=== PATIENT | female | born 1985 | race Caucasian/White ===

== ENCOUNTER 2016-09-21 08:27 | Observation (INO) | payer MEDICAID, OTHER ==
[2016-09-21] MEDS ORDERED: Sodium Chloride 0.9% 1,000 ML IV STA (09:31)
[2016-09-21 10:16] LABS: BASO # 0.1 K/uL (0.0-0.2); BASO % 0.5 % (0.0-2.0); EOS # 0.1 K/uL (0.0-0.7); EOS % 0.7 % (0.0-4.0); HEMOGLOBIN 13.6 g/dL (12.0-16.0); LYMPH % 8.4 % (20.0-40.0); MEAN CELL VOLUME 83.3 fl (81.0-99.0); MEAN CORPUSCULAR HEMOGLOBIN 28.1 pg (27.0-31.0); MEAN CORPUSCULAR HGB CONC 33.7 g/dL (33.0-37.0); MONO # 0.9 K/uL (0.0-0.8); MONO % 7.5 % (0.0-10.0); NEUT % 82.9 % (50.0-75.0); NRBC % 0.1 % (0.0-0.0); PLATELET COUNT 294 K/uL (130-400); RBC 4.83 Mil/uL (3.80-5.20); RED CELL DISTRIBUTION WIDTH 15.5 % (11.5-14.5)
[2016-09-21 10:26] LABS: BLOOD UREA NITROGEN 7 mg/dl (7-17); CALCIUM 9.7 mg/dL (8.4-10.2); GFR AFRICAN-AMERICAN > 60; GFR NON-AFRICAN AMERICAN > 60
[2016-09-21 11:27] LABS: EOSINOPHIL 1 % (0-7); LYMPHOCYTE 10 % (20-50); MONOCYTE 8 % (0-10); NEUTROPHIL 81 % (42-75); TOTAL CELLS COUNTED 100
[2016-09-21 11:28] LABS: PLATELET ESTIMATE NORMAL (NORMAL)
--- NOTE | 2016-09-21 11:33 | CT ---
PROCEDURE: CT HEAD WITHOUT CONTRAST. HISTORY: headache, passed out COMPARISON: 03/24/2014 TECHNIQUE: Axial computed tomography images were obtained through the head/brain without intravenous contrast. Radiation dose: Total exam DLP = 899.09 mGy-cm. This CT exam was performed using one or more of the following dose reduction techniques: Automated exposure control, adjustment of the mA and/or kV according to patient size, and/or use of iterative reconstruction technique. FINDINGS: HEMORRHAGE: No intracranial hemorrhage. BRAIN: No mass effect or edema. No atrophy or chronic microvascular ischemic changes. VENTRICLES: Unremarkable. No hydrocephalus. CALVARIUM: Unremarkable. PARANASAL SINUSES: Unremarkable as visualized. No significant inflammatory changes. MASTOID AIR CELLS: Unremarkable as visualized. No inflammatory changes. OTHER FINDINGS: None. IMPRESSION: No acute intracranial abnormalities. No significant findings to account for the clinical presentation. No significant interval change compared to the prior examination(s).
--- NOTE | 2016-09-21 12:15 | ED PDOC ---
Syncope/Near Syncope/Dizziness Time Seen by Provider: 09/21/16 09:11 Chief Complaint (Nursing): Syncope History Per: Patient (states that she passed out this morning after she an episode of severe left sided neck pain that radiated towards the left side of skull. Her notice her falling and was able to keep her fallng to ), Family History/Exam Limitations: no limitations Past Medical History Reviewed: Historical Data, Nursing Documentation, Vital Signs Vital Signs: Last Vital Signs Temp 98 F 09/21/16 09:01 Pulse 104 H 09/21/16 09:01 Resp 18 09/21/16 09:01 BP 98/63 L 09/21/16 09:01 Pulse Ox 100 09/21/16 09:01 - Medical History PMH: Migraine - Surgical History Surgical History: No Surg Hx - Family History Family History: States: Unknown Family Hx - Living Arrangements Living Arrangements: With Family - Social History Current smoker - smoking cessation education provided: No Ex-Smoker (has not smoked in the last 12 months): No - Home Medications Home Medications: Ambulatory Orders Medication Instructions Recorded Metoclopramide [Reglan] 1 tab PO TID PRN #30 tab 02/19/15 Ibuprofen [Motrin] 600 mg PO Q6H PRN #30 tab 06/16/15 oxyCODONE/Acetaminophen [Percocet 1 ea PO Q4H PRN #20 tab 06/16/15 5/325 mg Tab] - Allergies Allergies/Adverse Reactions: Allergies Allergy/AdvReac Type Severity Reaction Status Date / Time peanut Allergy SWELLING Verified 04/06/15 09:35 Review of Systems ROS Statement: Except As Marked, All Systems Reviewed And Found Negative Physical Exam - Reviewed Nursing Documentation Reviewed: Yes Vital Signs Reviewed: Yes - Physical Exam Appears: Positive for: Well, Non-toxic, No Acute Distress Head Exam: Positive for: ATRAUMATIC, NORMAL INSPECTION, NORMOCEPHALIC Skin: Positive for: Normal Color, Warm, DRY Eye Exam: Positive for: Normal appearance, EOMI, PERRL ENT: Positive for: Normal ENT Inspection Neck: Positive for: Normal, Painless ROM Cardiovascular/Chest: Positive for: Regular Rate, Rhythm Respiratory: Positive for: CNT, Normal Breath Sounds Gastrointestinal/Abdominal: Positive for: Normal Exam, Bowel Sounds, Soft Back: Positive for: Normal Inspection Extremity: Positive for: Normal ROM Neurologic/Psych: Positive for: Alert, Oriented - Laboratory Results Result Diagrams: 09/21/16 09:45 09/21/16 09:45 - ECG O2 Sat by Pulse Oximetry: 100 Disposition - Clinical Impression Clinical Impression: Syncope, Intractable headache - Patient ED Disposition Is Patient to be Admitted: Yes Doctor Will See Patient In The: Hospital - Disposition Disposition: Transfer of Care Disposition Time: 12:00 Condition: GUARDED Forms: [facility] (Greenlandic) - Pt Status Changed To: Hospital Disposition Of: Observation - POA Present On Arrival: None
[2016-09-21] MEDS ORDERED: Oxycodone/Acetaminophen 5/325 mg Tab PO PRN (13:16)
--- NOTE | 2016-09-21 14:37 | CON ---
DATE: 09/21/2016 NEUROLOGY CONSULTATION CHIEF COMPLAINT: Syncope and headaches. HISTORY OF PRESENT ILLNESS: This is a 31-year-old woman who has been having history of migraines and worsening headaches for the past month where she is getting it daily. She is not on any control. She gets diffuse pressure headaches, associated with photophobia, phonophobia, scintillating scotomas without any paresthesia in the extremities. She also gets right-sided and left-sided neck tightness radiating up to the back of the head, it was causing headaches at the time. She had syncopal event at home and fell in her 's arms, was fainted, and had a low systolic and diastolic blood pressure in the ER of 98/63 and was also dehydrated. She was given one bag of fluids. At this time her neuro exams are nonfocal. CT head show no acute cranial abnormalities. She will be getting MRI of the brain at this time. PAST MEDICAL HISTORY: History of migraine headaches. SOCIAL HISTORY: No illicit drug use, smoking or EtOH abuse. FAMILY HISTORY: Noncontributory. ALLERGIES: ALLERGIC TO PEANUTS. REVIEW OF SYSTEMS: A 14-point review of system is negative except as in the HPI. MEDICATIONS: Reviewed by the nurse per reconciliation sheet. PHYSICAL EXAMINATION VITAL SIGNS: Temperature of 98, pulse rate of 69, blood pressure 98/63, respiratory rate of 18, oxygen saturation 100% via room air. GENERAL: The patient is sitting up in bed, in no acute distress. HEENT: Head is atraumatic, normocephalic. PERRLA. Extraocular muscles intact. NECK: Supple. No JVD. No adenopathy noted. LUNGS: Clear to auscultation. No adventitious sounds. HEART: S1 and S2 normal, regular rate and rhythm. No murmur, rubs, or gallops. ABDOMEN: Soft, nontender and nondistended. Bowel sounds present. EXTREMITIES: No clubbing, no cyanosis. Peripheral pulses 2+ felt bilaterally. NEUROLOGICAL: The patient is alert and oriented to person, place, month and year. Speech is fluent without any errors. Cranial nerves II through XII intact. Motor exam: Moves all extremities equally. Toes are downgoing bilaterally. Sensory exam: Light touch pinprick, proprioception, and vibration is intact. DTRs are 2+ throughout. Coordination, [id number] intact. Gait is deferred for now. LABORATORY DATA: Sodium is 142, potassium 4, chloride 103, carbon dioxide 28, BUN of 7, creatinine 0.6. Random glucose of 77. ASSESSMENT AND PLAN: This is a 31-year-old woman with past medical history of migraine headaches. She had a syncopal event and has worsening migraine headaches for the past month. Her syncope is likely a vasovagal component secondary to dehydration and has aggregated her migraine headaches. RECOMMENDATIONS: 1. headaches are chronic in nature having mostly everyday in the past month, we will recommend her to be on Topamax 25 mg p.o. at bedtime and gabapentin 100 mg p.o. at bedtime for headache prevention. 2. Fioricet 1 tablet q. onset of headaches p.r.n. 3. MRI of the brain to assess any structural abnormalities though the CAT scan of the head is negative and neurologic exam is nonfocal. She is clinically stable to follow up as an outpatient. Roverto Izaguirre MD
--- NOTE | 2016-09-21 15:29 | MRI ---
PROCEDURE: MRI BRAIN WITHOUT CONTRAST HISTORY: syncope, migraine COMPARISON: None. TECHNIQUE: Multiplanar, multisequence MR images of the brain were obtained without intravenous contrast enhancement. FINDINGS: HEMORRHAGE: None DWI: No evidence of an acute or early subacute infarction. BRAIN PARENCHYMA: No mass effect or edema. No atrophy or chronic microvascular ischemic changes. VENTRICLES: Unremarkable. No hydrocephalus. CRANIUM: Unremarkable. ORBITS: Grossly unremarkable. PARANASAL SINUSES/MASTOIDS: Clear VASCULAR SYSTEM: Skull base flow voids intact. OTHER FINDINGS: None. IMPRESSION: Unremarkable non contrast enhanced MRI of the brain.
[2016-09-22 08:07] VITALS: RESP 20; TEMP 98.5; O2SAT 98
--- NOTE | 2016-09-22 08:23 | CP.PCM.HP ---
History of Present Illness - History of Present Illness History of Present Illness: pt admitted for intractable migraine on/off x 4 yrs. minimal relief from nsaids and narcotic pain meds. had neuro eval and mri. mri normal and neuro states that this is migraine and topamax/neurontin was started lastnight w/ effect. c/o mild st this am. no f/,c n/v/d. no associated s/s. Present on Admission - Present on Admission Any Indicators Present on Admission: No Review of Systems - EENT Nose/Mouth/Throat: As Per HPI, Sore Throat - Neurological Neurological: As Per HPI, Headaches Past Patient History - Infectious Disease Hx of Infectious Diseases: None - Past Medical History & Family History Past Medical History?: Yes - Past Social History Smoking Status: Never Smoked - CARDIAC Hx Cardiac Disorders: No - PULMONARY Hx Respiratory Disorders: No - NEUROLOGICAL Hx Neurological Disorder: Yes Hx Migraine: Yes - HEENT Hx HEENT Problems: No - RENAL Hx Chronic Kidney Disease: No - ENDOCRINE/METABOLIC Other/Comment: gestational diabetes - HEMATOLOGICAL/ONCOLOGICAL Hx Blood Disorders: No - INTEGUMENTARY Hx Dermatological Problems: No - MUSCULOSKELETAL/RHEUMATOLOGICAL Hx Musculoskeletal Disorders: No Hx Falls: No - GASTROINTESTINAL Hx Gastrointestinal Disorders: No - GENITOURINARY/GYNECOLOGICAL Hx Genitourinary Disorders: No Hx Urinary Tract Infection: Yes - PSYCHIATRIC Hx Psychophysiologic Disorder: No Hx Substance Use: No - SURGICAL HISTORY Hx Section: Yes (X2) - ANESTHESIA Hx Anesthesia: Yes Hx Anesthesia Reactions: No Hx Malignant Hyperthermia: No Has any member of the family had a problem w/ anesthesia?: No Meds Home Medications: Home Medication List Medication Instructions Recorded Confirmed Type Gabapentin [Neurontin] 100 mg PO HS #30 cap 09/22/16 Rx Ibuprofen [Motrin Tab] 600 mg PO Q6H PRN tab 09/22/16 Rx Metoclopramide [Reglan] 10 mg PO TID PRN tab 09/22/16 Rx Topiramate [Topamax] 25 mg PO HS #30 tab 09/22/16 Rx Allergies/Adverse Reactions: Allergies Allergy/AdvReac Type Severity Reaction Status Date / Time peanut Allergy SWELLING Verified 04/06/15 09:35 Physical Exam - Constitutional Appears: Well, Non-toxic, No Acute Distress - Head Exam Head Exam: ATRAUMATIC, NORMAL INSPECTION, NORMOCEPHALIC - Eye Exam Eye Exam: EOMI, Normal appearance, PERRL Pupil Exam: NORMAL ACCOMODATION, PERRL - ENT Exam ENT Exam: Mucous Membranes Moist, Normal Exam - Neck Exam Neck exam: Positive for: Normal Inspection - Respiratory Exam Respiratory Exam: Clear to Auscultation Bilateral, NORMAL BREATHING PATTERN - Cardiovascular Exam Cardiovascular Exam: REGULAR RHYTHM, RRR, +S1, +S2 - GI/Abdominal Exam GI & Abdominal Exam: Normal Bowel Sounds, Soft. absent: Tenderness - Extremities Exam Extremities exam: Positive for: full ROM, normal capillary refill, normal inspection, pedal pulses present - Back Exam Back exam: FULL ROM, NORMAL INSPECTION - Neurological Exam Neurological exam: Alert, CN II-XII Intact, Normal Gait, Oriented x3, Reflexes Normal - Psychiatric Exam Psychiatric exam: Normal Affect, Normal Mood - Skin Skin Exam: Dry, Intact, Normal Color, Warm Results - Vital Signs Recent Vital Signs: Last Vital Signs Temp 98.5 F 09/22/16 08:00 Pulse 89 09/22/16 08:00 Resp 20 09/22/16 08:00 BP 95/61 L 09/22/16 08:00 Pulse Ox 98 09/22/16 08:00 - Labs Result Diagrams: 09/21/16 09:45 09/21/16 09:45 Assessment & Plan (1) Migraine Assessment and Plan: topamax/neurontin neuro-cleared pt for dc mri-wnl Status: Acute - Assessment and Plan (Free Text) Assessment: sore throat-otc throat drops, will follow as outpt dvt ppx-sca dna e hose, ambulation Decision To Admit - Pt Status Changed To: Hospital Disposition Of: Observation - . Bed Request Type: Telemetry Admitting Physician: Abilio Nazario
--- NOTE | 2016-09-22 09:41 | CP.PCM.DIS ---
Provider - Provider Date of Admission: 09/21/16 12:17 Attending physician: Abilio Nazario MD Time Spent in preparation of Discharge (in minutes): 15 Hospital Course - Lab Results Lab Results: Most Recent Lab Values WBC 12.0 K/uL (4.8-10.8) H 09/21/16 09:45 RBC 4.83 Mil/uL (3.80-5.20) 09/21/16 09:45 Hgb 13.6 g/dL (12.0-16.0) 09/21/16 09:45 Hct 40.2 % (34.0-47.0) 09/21/16 09:45 MCV 83.3 fl (81.0-99.0) D 09/21/16 09:45 MCH 28.1 pg (27.0-31.0) 09/21/16 09:45 MCHC 33.7 g/dL (33.0-37.0) 09/21/16 09:45 RDW 15.5 % (11.5-14.5) H 09/21/16 09:45 Plt Count 294 K/uL (130-400) 09/21/16 09:45 MPV 9.0 fl (7.2-11.7) 09/21/16 09:45 Neut % (Auto) 82.9 % (50.0-75.0) H 09/21/16 09:45 Lymph % (Auto) 8.4 % (20.0-40.0) L 09/21/16 09:45 [place] % (Auto) 7.5 % (0.0-10.0) 09/21/16 09:45 Eos % (Auto) 0.7 % (0.0-4.0) 09/21/16 09:45 Baso % (Auto) 0.5 % (0.0-2.0) 09/21/16 09:45 Neut # 10.0 K/uL (1.8-7.0) H 09/21/16 09:45 Lymph # 1.0 K/uL (1.0-4.3) 09/21/16 09:45 [place] # 0.9 K/uL (0.0-0.8) H 09/21/16 09:45 Eos # 0.1 K/uL (0.0-0.7) 09/21/16 09:45 Baso # 0.1 K/uL (0.0-0.2) 09/21/16 09:45 Neutrophils % (Manual) 81 % (42-75) H 09/21/16 09:45 Lymphocytes % (Manual) 10 % (20-50) L 09/21/16 09:45 Monocytes % (Manual) 8 % (0-10) 09/21/16 09:45 Eosinophils % (Manual) 1 % (0-7) 09/21/16 09:45 Platelet Estimate Normal (NORMAL) 09/21/16 09:45 ESR 9 mm/hr (0-20) 09/21/16 09:45 Sodium 142 mmol/l (132-148) 09/21/16 09:45 Potassium 4.0 MMOL/L (3.6-5.0) 09/21/16 09:45 Chloride 103 mmol/L (98-107) 09/21/16 09:45 Carbon Dioxide 28 mmol/L (22-30) 09/21/16 09:45 Anion Gap 15 (10-20) 09/21/16 09:45 BUN 7 mg/dl (7-17) 09/21/16 09:45 Creatinine 0.6 mg/dL (0.7-1.2) L 09/21/16 09:45 Est GFR ( Amer) > 60 09/21/16 09:45 Est GFR (Non-Af Amer) > 60 09/21/16 09:45 POC Glucose (mg/dL) 82 mg/dL (65-110) 09/21/16 09:39 Random Glucose 77 mg/dL (65-105) 09/21/16 09:45 Calcium 9.7 mg/dL (8.4-10.2) 09/21/16 09:45 Discharge Exam - Head Exam Head Exam: ATRAUMATIC, NORMAL INSPECTION, NORMOCEPHALIC Discharge Plan - Discharge Medications Prescriptions: Gabapentin [Neurontin] 100 mg PO HS #30 cap Topiramate [Topamax] 25 mg PO HS #30 tab - Follow Up Plan Condition: GUARDED Disposition: HOME/ ROUTINE Additional Instructions: f/u rmg 2 days, rted prn, meds per med rec final dx-complex migraine cleared by neuro mri noted and normal
[2016-09-22 09:43] VITALS: BP 129/74
[2016-09-22 09:49] VITALS: PULSE 89
== END 2016-09-22 10:44 | disposition home or self-care (01) ==
LOC: H.ER 08:27 → H.ERHOLD 12:17 → H.TEL 15:21
PROVIDERS: ADMIT Family Medicine; ATTEND Family Medicine
DX: G43.819 Other migraine, intractable, without status migrainosus (principal); E86.0 Dehydration; J02.9 Acute pharyngitis, unspecified; Z91.010 Allergy to peanuts; Z87.440 Personal history of urinary (tract) infections; Z87.891 Personal history of nicotine dependence

== ENCOUNTER 2017-06-15 09:06 | Emergency (ER) | payer MEDICAID ==
[2017-06-15 09:14] VITALS: BMI 18.8
[2017-06-15 09:15] VITALS: RESP 16; O2SAT 100
[2017-06-15] MEDS ORDERED: Sodium Chloride 0.9% 1,000 ML IV STA (09:22)
--- NOTE | 2017-06-15 09:41 | ED PDOC ---
HPI: Headache Time Seen by Provider: 06/15/17 09:10 Chief Complaint (Nursing): Headache History Per: Patient History/Exam Limitations: no limitations Onset/Duration Of Symptoms: Days (x 2) Current Symptoms Are (Timing): Still Present Additional Complaint(s): 32-year-old female, with history of migraines, presents to ED with left-sided headache x 2 days associated with nausea and blurry vision. Similar symptoms to migraine symptoms in the past. Unable to take imitrex due to finding out she was . (-) fever, (-) neck stiffness, (-) injury, (-) peripheral weakness , (-) paresthesias. PMD: Provider TBD Past Medical History Reviewed: Historical Data, Nursing Documentation, Vital Signs Vital Signs: Last Vital Signs Temp 98.3 F 06/15/17 09:14 Pulse 88 06/15/17 09:14 Resp 16 06/15/17 09:14 BP 107/74 06/15/17 09:14 Pulse Ox 100 06/15/17 09:14 - Medical History PMH: Migraine Denies: Chronic Kidney Disease - Surgical History Surgical History: No Surg Hx - Family History Family History: States: Unknown Family Hx - Home Medications Home Medications: Ambulatory Orders Medication Instructions Recorded Gabapentin [Neurontin] 100 mg PO HS #30 cap 09/22/16 Ibuprofen [Motrin Tab] 600 mg PO Q6H PRN tab 09/22/16 Metoclopramide [Reglan] 10 mg PO TID PRN tab 09/22/16 Topiramate [Topamax] 25 mg PO HS #30 tab 09/22/16 - Allergies Allergies/Adverse Reactions: Allergies Allergy/AdvReac Type Severity Reaction Status Date / Time peanut Allergy SWELLING Verified 04/06/15 09:35 Review of Systems ROS Statement: Except As Marked, All Systems Reviewed And Found Negative Constitutional: Negative for: Fever Eyes: Positive for: Other (Blurry vision) Gastrointestinal: Positive for: Nausea Musculoskeletal: Negative for: Other (neck stiffness) Neurological: Positive for: Headache (left-sided). Negative for: Other ( peripheral weakness, paresthesias) Physical Exam - Reviewed Nursing Documentation Reviewed: Yes Vital Signs Reviewed: Yes - Physical Exam Head Exam: Positive for: NORMAL INSPECTION (no temporal tenderness) Eye Exam: Positive for: Normal appearance, EOMI, PERRL Neck: Positive for: Supple Neurologic/Psych: Positive for: Alert, Oriented (x 3). Negative for: Motor/ Sensory Deficits - Laboratory Results Result Diagrams: 06/15/17 09:37 06/15/17 09:37 - ECG O2 Sat by Pulse Oximetry: 100 (RA) Pulse Ox Interpretation: Normal - Progress Re-evaluation Time: 11:16 Condition: Improved Medical Decision Making Medical Decision Making: Time: 09:22 Plan: - Beta-hCG, Quantitative - CMP - CBC - [place] Chloride 09% 1,000 ml IV 150 mls/hr - Reglan 10 g IVP - SOLU-Medrol Beta hCG, Quantitative Reveals 120.44 mIU/mL Scribe Attestation: Documented by Altaf Dave, acting as a scribe for Himanshu Russell MD Provider Scribe Attestation: All medical record entries made by the Scribe were at my direction and personally dictated by me. I have reviewed the chart and agree that the record accurately reflects my personal performance of the history, physical exam, medical decision making, and the department course for this patient. I have also personally directed, reviewed, and agree with the discharge instructions and disposition. Disposition - Clinical Impression Clinical Impression: Migraine - Patient ED Disposition Is Patient to be Admitted: No Counseled Patient/Family Regarding: Diagnosis, Need For Followup - Disposition Referrals: Darion Camara MD [Medical Doctor] - Disposition: Routine/Home Disposition Time: 11:17 Condition: FAIR Instructions: Migraine Headache (DC) Forms: [employer] (Korean)
[2017-06-15 09:43] LABS: BASO # 0.1 K/uL (0.0-0.2); BASO % 0.9 % (0.0-2.0); EOS # 0.1 K/uL (0.0-0.7); EOS % 1.7 % (0.0-4.0); HEMOGLOBIN 14.7 g/dL (12.0-16.0); LYMPH # 1.8 K/uL (1.0-4.3); LYMPH % 22.8 % (20.0-40.0); MEAN CELL VOLUME 85.5 fl (81.0-99.0); MEAN CORPUSCULAR HEMOGLOBIN 29.2 pg (27.0-31.0); MEAN CORPUSCULAR HGB CONC 34.1 g/dL (33.0-37.0); MONO # 0.8 K/uL (0.0-0.8); MONO % 9.9 % (0.0-10.0); NEUT # 5.2 K/uL (1.8-7.0); NEUT % 64.7 % (50.0-75.0); RBC 5.03 Mil/uL (3.80-5.20); RED CELL DISTRIBUTION WIDTH 14.8 % (11.5-14.5); WHITE BLOOD COUNT 8.1 K/uL (4.8-10.8)
[2017-06-15 09:54] LABS: ALB/GLOB RATIO 1.2 (1.0-2.1); ALBUMIN 4.8 g/dL (3.5-5.0); ALT/SGPT 27 U/L (9-52); AST/SGOT 21 U/L (14-36); BLOOD UREA NITROGEN 8 mg/dl (7-17); CALCIUM 9.6 mg/dL (8.4-10.2); GFR AFRICAN-AMERICAN > 60; GFR NON-AFRICAN AMERICAN > 60
[2017-06-15 11:23] VITALS: BP 110/76; PULSE 78; TEMP 98.1
== END 2017-06-15 11:20 | disposition home or self-care (01) ==
LOC: H.ER 09:06
DX: G43.909 Migraine, unspecified, not intractable, without status migrainosus (principal)
CPT/HCPCS: 80053; 84702; 85025; 96374; 96375; 99285; J2765; J2930; J7040

== ENCOUNTER 2017-06-23 08:47 | Emergency (ER) | payer MEDICAID ==
[2017-06-23 08:47] VITALS: BMI 18.8
[2017-06-23 09:30] VITALS: RESP 18
--- NOTE | 2017-06-23 11:40 | ED PDOC ---
HPI: Female Pain Chief Complaint (Provider): vaginal bleeding History Per: Patient History/Exam Limitations: no limitations Onset/Duration Of Symptoms: Hrs Current Symptoms Are (Timing): Still Present Severity: Moderate Associated Symptoms: denies: Fever, Chills, Nausea, Vomiting, Urinary Symptoms Alleviating Factors: None Additional Complaint(s): 32 yr old presents to ED with complaint of vaginal bleeding. Patient reports a positive at home test on 06/12/17. LMP was 05/14/17. Patient had an ED visit for migraine headache on 06/15/17 and had a positive Beta-Hcg quant of 120.44 mIU/mL. Has not followed up with PMD or obgyn. Denies nausea, vomiting, weakness, dizziness or abd/pelvic pain. Vaginal bleeding is menses like in quantity. PMD: [facility] Obgyn: , hx 1 miscarriage in 2013 SurgHx: 2 c-sections Meds: none Allergies: NKDA <Brissa Thacker - Last Filed: 06/23/17 13:02> <Derian Darnell - Last Filed: 06/24/17 17:38> Time Seen by Provider: 06/23/17 09:46 Chief Complaint (Nursing): Female Genitourinary Supervising Attending Note - Supervising Attending Note The Documented history was done by the: Physician Production Broacher, Attending Physician The documented physical exam was done by the: Physician Production Broacher, Attending Physician The documented procedures were done by the: Physician Production Broacher, Attending Physician - Attestation: I have personally seen and examined this patient.: Yes I have fully participated in the care of the patient.: Yes I have reviewed all pertinent clinical information, including history, physical exam and plan: Yes <Derian Darnell - Last Filed: 06/24/17 17:38> Past Medical History Vital Signs: Last Vital Signs Temp 98.1 F 06/23/17 09:29 Pulse 90 06/23/17 09:29 Resp 18 06/23/17 09:29 BP 116/83 06/23/17 09:29 Pulse Ox 100 06/23/17 09:29 - Medical History PMH: Migraine Denies: Chronic Kidney Disease - Surgical History Surgical History: (x 2) - Family History Family History: States: Unknown Family Hx - Living Arrangements Living Arrangements: With Family - Social History Current smoker - smoking cessation education provided: No Ex-Smoker (has not smoked in the last 12 months): No Alcohol: None Drugs: Denies <Brissa Thacker - Last Filed: 06/23/17 13:02> Reviewed: Historical Data, Nursing Documentation, Vital Signs Vital Signs: Last Vital Signs Temp 98 F 06/23/17 14:15 Pulse 70 06/23/17 14:15 Resp 18 06/23/17 14:15 BP 103/64 06/23/17 14:15 Pulse Ox 99 06/23/17 14:15 <Derian Darnell - Last Filed: 06/24/17 17:38> - Home Medications Home Medications: Ambulatory Orders Medication Instructions Recorded Gabapentin [Neurontin] 100 mg PO HS #30 cap 09/22/16 Ibuprofen [Motrin Tab] 600 mg PO Q6H PRN tab 09/22/16 Metoclopramide [Reglan] 10 mg PO TID PRN tab 09/22/16 Topiramate [Topamax] 25 mg PO HS #30 tab 09/22/16 Nitrofurantoin Macrocrystals 100 mg PO BID #10 cap 06/23/17 [Macrobid] - Allergies Allergies/Adverse Reactions: Allergies Allergy/AdvReac Type Severity Reaction Status Date / Time peanut Allergy SWELLING Verified 04/06/15 09:35 Review of Systems Constitutional: Negative for: Fever, Chills Eyes: Negative for: Vision Change ENT: Negative for: Nose Discharge, Throat Pain Cardiovascular: Negative for: Chest Pain, Palpitations, Edema, Light Headedness Respiratory: Negative for: Cough, Shortness of Breath Gastrointestinal: Negative for: Nausea, Vomiting, Abdominal Pain Genitourinary Female: Negative for: Dysuria, Frequency Musculoskeletal: Negative for: Neck Pain, Shoulder Pain Skin: Negative for: Rash, Lesions Neurological: Negative for: Weakness, Headache, Dizziness <Brissa Thacker - Last Filed: 06/23/17 13:02> ROS Statement: Except As Marked, All Systems Reviewed And Found Negative <Derian Darnell - Last Filed: 06/24/17 17:38> Physical Exam - Physical Exam Appears: Positive for: No Acute Distress Head Exam: Positive for: ATRAUMATIC, NORMOCEPHALIC Skin: Positive for: Normal Color, Warm, Dry Eye Exam: Positive for: EOMI, PERRL ENT: Negative for: Pharyngeal Erythema, Tonsillar Exudate Neck: Positive for: Painless ROM, Supple Cardiovascular/Chest: Positive for: Regular Rate, Rhythm. Negative for: Gallop , Murmur Respiratory: Positive for: Normal Breath Sounds. Negative for: Rales, Rhonchi Pulses-Carotid (L): 2+ Pulses-Carotid (R): 2+ Pulses-Radial (L): 2+ Pulses-Radial (R): 2+ Gastrointestinal/Abdominal: Positive for: Bowel Sounds (normal), Soft. Negative for: Tenderness Pelvic Exam: Positive for: Bimanual Exam Normal, Other (hris analyst in room ( Whitley Vinch R.N): moderate amount of blood in vaginal vault, no lesions, external cervical os closed). Negative for: Tender W/Cervical Motion, Tender Adnexa, Tender Uterus Back: Positive for: Normal Inspection Extremity: Positive for: Normal ROM. Negative for: Pedal Edema Lymphatic: Negative for: Adenopathy Neurologic/Psych: Positive for: Alert, vapor coater II-XII (intact), Oriented, Mood/ Affect (normal/full range) <Brissa Thacker - Last Filed: 06/23/17 13:02> - Reviewed Nursing Documentation Reviewed: Yes Vital Signs Reviewed: Yes <Derian Darnell - Last Filed: 06/24/17 17:38> - ECG O2 Sat by Pulse Oximetry: 100 - Progress ED Course And Treament: -Upreg: negative -Udip: large blood, pos nitrite, negative leuk -Beta Hcg quant: 28.10 mIU/mL -Ob transvaginal US: no intrauterine gestation identified, normal endometrium -Type and screen in meditech: O positive <Brissa Thacker - Last Filed: 06/23/17 13:02> Disposition - Patient ED Disposition Is Patient to be Admitted: No Counseled Patient/Family Regarding: Diagnosis, Need For Followup, Rx Given - Disposition Disposition: Routine/Home Disposition Time: 12:58 <Brsisa Thacker - Last Filed: 06/23/17 13:02> Counseled Patient/Family Regarding: Studies Performed <Derian Darnell - Last Filed: 06/24/17 17:38> - Clinical Impression Clinical Impression: Urinary tract infection, Spontaneous with hemorrhage, complete - Disposition Referrals: Thanh Carson MD [Family Provider] - Erica Thacker MD [Staff Provider] - Condition: GOOD Additional Instructions: -Take medications as prescribed -Follow up with your PMD within 1 week. -Follow up with clinical leader within 1 week -Return to ED if worsening of symptoms or concerns Prescriptions: Nitrofurantoin Macrocrystals [Macrobid] 100 mg PO BID #10 cap Instructions: Urinary Tract Infection, Adult (DC), Miscarriage (DC)
--- NOTE | 2017-06-23 12:13 | US ---
HISTORY: vaginal bleeding with positive beta quant COMPARISON: None available. TECHNIQUE: Transvaginal pelvic ultrasound was performed with longitudinal and transverse images submitted for interpretation. FINDINGS: UTERUS: Measures 8.8 x 4.5 x 4.7 cm. Normal in size and appearance. No fibroid or other mass lesion seen. ENDOMETRIUM: Measures 12.7 mm in diameter. No intrauterine gestation identified with the endometrium appearing unremarkable. CERVIX: 3.8 cm in length with no cyst or solid mass related. RIGHT OVARY: Measures 3.2 x 1.8 x 3.1 cm. No solid mass. Normal flow. Simple cyst is identified measuring 1.1 x 1.3 x 0.7 cm which may represent a dominant follicle though other etiologies are possible. LEFT OVARY: Measures 2.3 x 1.3 x 2.9 cm. No solid mass. Normal flow. FREE FLUID: No significant free fluid noted. OTHER FINDINGS: None. IMPRESSION: No intrauterine gestation is identified or a definitive pattern of ectopic gestation which is nevertheless is not excluded. Clinically correlate. Follow-up pelvic ultrasonography is advised in 1 week. Nonvisualized viable intrauterine gestation is not excluded.
[2017-06-23 14:18] VITALS: BP 103/64; PULSE 70; TEMP 98; O2SAT 99
== END 2017-06-23 14:18 | disposition home or self-care (01) ==
LOC: H.ER 08:47
DX: O03.88 Urinary tract infection following complete or unspecified spontaneous abortion (principal); Z87.891 Personal history of nicotine dependence

== ENCOUNTER 2018-02-04 20:59 | Emergency (ER) | payer MEDICAID ==
[2018-02-04 20:59] VITALS: BMI 18.8
[2018-02-04 21:20] VITALS: BP 109/75; RESP 16; TEMP 97.4; O2SAT 99
[2018-02-04] MEDS ORDERED: Sodium Chloride 0.9% 1,000 ML IV STA (21:36)
[2018-02-04 21:59] LABS: BASO % 0.3 % (0.0-2.0); EOS # 0.2 K/uL (0.0-0.7); EOS % 1.8 % (0.0-4.0); HEMOGLOBIN 14.6 g/dL (12.0-16.0); LYMPH # 0.6 K/uL (1.0-4.3); LYMPH % 5.8 % (20.0-40.0); MEAN CORPUSCULAR HEMOGLOBIN 29.9 pg (27.0-31.0); MEAN PLATELET VOLUME 9.4 fl (7.2-11.7); MONO # 0.7 K/uL (0.0-0.8); MONO % 6.3 % (0.0-10.0); NEUT # 9.2 K/uL (1.8-7.0); NEUT % 85.8 % (50.0-75.0); PLATELET COUNT 268 K/uL (130-400); RBC 4.87 Mil/uL (3.80-5.20); RED CELL DISTRIBUTION WIDTH 13.9 % (11.5-14.5); WHITE BLOOD COUNT 10.7 K/uL (4.8-10.8)
[2018-02-04 22:09] LABS: ALB/GLOB RATIO 1.3 (1.0-2.1); ALBUMIN 4.7 g/dL (3.5-5.0); ALT/SGPT 20 U/L (9-52); AST/SGOT 23 U/L (14-36); BLOOD UREA NITROGEN 10 mg/dl (7-17); CALCIUM 9.5 mg/dL (8.4-10.2); GFR NON-AFRICAN AMERICAN > 60
[2018-02-04 22:11] LABS: SQUAMOUS EPITHIAL 8 /hpf (0-5); URINE BACTERIA RARE (<OCC); URINE BILIRUBIN NEGATIVE (NEGATIVE); URINE BLOOD NEGATIVE (NEGATIVE); URINE CLARITY SLIGHTY-CLOUDY (Clear); URINE COLOR YELLOW (YELLOW); URINE GLUCOSE (UA) NEG (NEGATIVE); URINE LEUKOCYTE ESTERASE NEG Leu/uL (Negative); URINE PROTEIN NEGATIVE (NEGATIVE); URINE UROBILINOGEN 0.2-1.0 mg/dL (0.2-1.0)
--- NOTE | 2018-02-04 22:22 | ED PDOC ---
HPI: Female Pain Time Seen by Provider: 02/04/18 21:34 Chief Complaint (Nursing): Female Genitourinary Chief Complaint (Provider): Flank pain History Per: Patient History/Exam Limitations: no limitations Onset/Duration Of Symptoms: Days (2) Current Symptoms Are (Timing): Still Present Quality Of Discomfort: "Pain" Associated Symptoms: Urinary Symptoms Additional History Per: Patient Additional Complaint(s): 33yo female, no past medical history, comes to ER reporting flank pain x 2 days, radiating from bilateral flank to her lower abdomen. She states he pain is worse on her right side. Patient states for the past week, she has had urinary frequency and dysuria for which she increased her fluid intake and drank cranberry juice, with no relief. Patient states she has history of UTI's and upon evaluation by her PMD 3 days ago, she was told she has "a severe urine infection." Patient was placed on Cipro, which she took with relief of urine symptoms; patient states the back pain has now worsened. She reports associated chills and nausea but denies any vomiting. She denies any diarrhea, constipation, vaginal discharge or bleeding. She has not taken any medication other than pyridium. PMD: Dr. Mare Greco Past Medical History Reviewed: Historical Data, Nursing Documentation, Vital Signs Vital Signs: Last Vital Signs Temp 97.4 F L 02/04/18 21:14 Pulse 101 H 02/04/18 21:14 Resp 16 02/04/18 21:14 BP 109/75 02/04/18 21:14 Pulse Ox 99 02/04/18 21:14 - Medical History PMH: Migraine Denies: Chronic Kidney Disease - Surgical History Surgical History: (x 2) - Family History Family History: States: Other Other Family History: sister with lupus - Living Arrangements Living Arrangements: With Family - Social History Current smoker - smoking cessation education provided: No Alcohol: None Drugs: Denies - Home Medications Home Medications: Ambulatory Orders Medication Instructions Recorded Gabapentin [Neurontin] 100 mg PO HS #30 cap 09/22/16 Ibuprofen [Motrin Tab] 600 mg PO Q6H PRN tab 09/22/16 Metoclopramide [Reglan] 10 mg PO TID PRN tab 09/22/16 Topiramate [Topamax] 25 mg PO HS #30 tab 09/22/16 Nitrofurantoin Macrocrystals 100 mg PO BID #10 cap 06/23/17 [Macrobid] Cyclobenzaprine [Flexeril] 5 mg PO Q8 PRN #15 tab 02/04/18 Ibuprofen [Motrin Tab] 600 mg PO Q8 PRN #60 tab 02/04/18 - Allergies Allergies/Adverse Reactions: Allergies Allergy/AdvReac Type Severity Reaction Status Date / Time peanut Allergy SWELLING Verified 04/06/15 09:35 Review of Systems ROS Statement: Except As Marked, All Systems Reviewed And Found Negative (per HPI) Constitutional: Positive for: Chills. Negative for: Fever Gastrointestinal: Positive for: Abdominal Pain. Negative for: Nausea, Vomiting Genitourinary Female: Positive for: Dysuria, Frequency Musculoskeletal: Positive for: Back Pain Physical Exam - Reviewed Nursing Documentation Reviewed: Yes Vital Signs Reviewed: Yes - Physical Exam Appears: Positive for: Non-toxic, Uncomfortable (mild painful distress) Head Exam: Positive for: ATRAUMATIC, NORMOCEPHALIC Skin: Positive for: Warm, Dry Eye Exam: Positive for: EOMI, PERRL Neck: Positive for: Painless ROM, Supple Cardiovascular/Chest: Positive for: Regular Rate, Rhythm. Negative for: Murmur Respiratory: Positive for: Normal Breath Sounds. Negative for: Respiratory Distress Gastrointestinal/Abdominal: Positive for: Soft, Tenderness (spuprapubic ). Negative for: Distended, Guarding, Rebound Back: Positive for: L CVA Tenderness, R CVA Tenderness (right worse than left) Extremity: Positive for: Normal ROM. Negative for: Deformity Lymphatic: Negative for: Adenopathy Neurologic/Psych: Positive for: Alert, Oriented - Laboratory Results Result Diagrams: 02/04/18 21:50 02/04/18 21:50 - ECG O2 Sat by Pulse Oximetry: 99 (RA) Pulse Ox Interpretation: Normal Medical Decision Making Medical Decision Making: Impression: 33yo female w/ flank pain Differential: Including but not limited to pyelonephritis, renal colic, muscle strain Plan: * Labs * IV Fluids * UDip * Urinalysis * Urine culture * Blood culture * CT Abdomen/Pelvis w/o contrast * Toradol 15mg IV * Zofran 4mg IV * Tylenol 975mg PO * IV Fluids 2227 CT Abdomen/Pelvis FINDINGS: LUNG BASES: The lung bases appear clear. No pleural effusions are seen. LIVER: Unremarkable. GALLBLADDER AND BILE DUCTS: The gallbladder is contracted. No radioopaque gallstones are seen. No biliary ductal dilatation is evident. PANCREAS: Unremarkable. SPLEEN: Unremarkable. ADRENAL GLANDS: Unremarkable. KIDNEYS, URETERS, AND BLADDER: The kidneys appear within normal limits. There is no hydronephrosis or hydroureter. No urinary calculi are seen. STOMACH AND BOWEL: Unremarkable appearance of the stomach and bowel. No evidence of bowel obstruction. No evidence suggesting enteritis or colitis. APPENDIX: No evidence of acute appendicitis on CT examination. PERITONEUM: No abdominal free fluid. Trace fluid in the cul-de-sac. No free air. LYMPH NODES: No lymphadenopathy is evident. REPRODUCTIVE: Uterus and ovaries are unremarkable. VASCULATURE: No evidence of abdominal aortic aneurysm. BONES: No aggressive appearing osseous lesion. No acute osseous pathology evident. IMPRESSION: No acute intra-abdominal or pelvic abnormality. Urinalysis reviewed, mild UTI noted. Scribe Attestation: Documented by Sabina Yun, acting as a scribe for Bianca Laura MD. Provider Scribe Attestation: All medical record entries made by the Scribe were at my direction and personally dictated by me. I have reviewed the chart and agree that the record accurately reflects my personal performance of the history, physical exam, medical decision making, and the department course for this patient. I have also personally directed, reviewed, and agree with the discharge instructions and disposition. Disposition - Clinical Impression Clinical Impression: Flank pain, UTI (urinary tract infection) Counseled Patient/Family Regarding: Studies Performed, Diagnosis, Need For Followup, Rx Given - Disposition Referrals: Thanh Carson MD [Medical Doctor] - 02/05/18 Disposition: Routine/Home Disposition Time: 23:03 Condition: STABLE Additional Instructions: CONTINUE YOUR ANTIBIOTICS PRESCRIBED FOLLOWUP WITH DR CARSON THIS WEEK FOR REEVALUATION RETURN TO ER FOR FEVER, SEVERE PAIN, INTRACTABLE VOMITING, OR ANY OTHER WORRISOME SYMPTOMS. Prescriptions: Cyclobenzaprine [Flexeril] 5 mg PO Q8 PRN #15 tab PRN Reason: muscle spasm Ibuprofen [Motrin Tab] 600 mg PO Q8 PRN #60 tab PRN Reason: Pain, Moderate (4-7) Instructions: Flank Pain (DC), Urinary Tract Infection, Adult (DC)
[2018-02-04 22:35] LABS: ANISOCYTOSIS SLIGHT; BANDS 3 % (0-2); EOSINOPHIL 1 % (0-7); LYMPHOCYTE 6 % (20-50); MONOCYTE 7 % (0-10); NEUTROPHIL 82 % (42-75); PLATELET ESTIMATE NORMAL (NORMAL); REACTIVE LYMPHOCYTES 1 % (0-0); TOTAL CELLS COUNTED 100
[2018-02-04 23:22] VITALS: PULSE 80
--- NOTE | 2018-02-05 10:39 | CT ---
Date of service: 02/04/2018 PROCEDURE: CT Abdomen and Pelvis without intravenous contrast HISTORY: flank pain uti COMPARISON: None. TECHNIQUE: CT scan of the abdomen and pelvis was performed without administration of intravenous contrast. Oral contrast was not administered. Coronal and sagittal reformatted images were obtained. . Radiation dose: Total exam DLP = 217.34 mGy-cm. This CT exam was performed using one or more of the following dose reduction techniques: Automated exposure control, adjustment of the mA and/or kV according to patient size, and/or use of iterative reconstruction technique. FINDINGS: LOWER THORAX: The visualized lungs are clear. LIVER: Normal in size. No intrahepatic ductal dilatation. GALLBLADDER AND BILE DUCTS: No calcified gallstones. No biliary dilatation PANCREAS: Normal in size. No ductal dilatation. SPLEEN: Normal in size. ADRENALS: Normal in size. No discrete nodule. KIDNEYS AND URETERS: Normal in size without nephrolithiasis. No hydronephrosis. VASCULATURE: No aortic aneurysm. No aortic atherosclerotic calcification or mural plaque present. BOWEL: The small bowel loops are normal in caliber. The colon is normal in size. No bowel dilatation or wall thickening. No bowel obstruction. APPENDIX: Normal appendix. PERITONEUM: No free fluid. No free air. LYMPH NODES: No enlarged lymph nodes. BLADDER: Well distended and grossly normal in appearance. REPRODUCTIVE: The uterus is normal in size BONES: No acute fracture. OTHER FINDINGS: None. IMPRESSION: No acute abdominal or pelvic abnormality. A preliminary report was provided by [employer]. And
== END 2018-02-04 23:21 | disposition home or self-care (01) ==
LOC: H.ER 20:59
DX: N39.0 Urinary tract infection, site not specified (principal); R10.9 Unspecified abdominal pain
CPT/HCPCS: 74176; 80053; 81003; 81025; 83605; 85025; 87040; 87086; 96374; 96375; 99283; J1885; J2405; J7030